=== PATIENT | male | born 1970 | race Caucasian/White ===

== ENCOUNTER 2018-07-13 11:14 | Inpatient (IN) | payer OTHER ==
--- NOTE | 2018-07-13 12:30 | PDOC ---
History of Present Illness - General Chief Complaint: Revisit, Lab Variance Stated Complaint: SENT BY PCP Time Seen by Provider: 07/13/18 11:48 History Source: Patient, Family (Daughter present at bedside) Exam Limitations: No Limitations - History of Present Illness Initial Comments: HPI: 47 y/o male presenting to [facility] ER at urging of Dr. Hazel Meza complaining of chills, nausea, and decreased appetite. Symptoms started on Thursday (11 July 2018). Pts daughter at bedside and reports the pt has been foggy headed. No history of similar symptoms. PCP: Dr. Carina Gilmore Social Hx: - Self employed with Medical Hx: - CKD - Insulin dependent diabetes - HTN - Anemia -S/p ablation for unknown tachycardia Past History - Past Medical History Allergies/Adverse Reactions: Allergies Allergy/AdvReac Type Severity Reaction Status Date / Time No Known Allergies Allergy Verified 07/13/18 11:41 COPD: No Diabetes: Yes (on insulin) HTN: Yes - Suicide/Smoking/Psychosocial Hx Smoking History: Never smoked Hx Alcohol Use: No Drug/Substance Use Hx: No Review of Systems - Review of Systems Able to Perform ROS?: Yes Comments:: In addition to that documented in the HPI above, the additional ROS was obtained : Constitutional: Endorses chills. Denies fevers. Head: Denies vision changes ENMT: Denies sore throat CV: Denies chest pain Resp: Denies SOB GI: Denies vomiting or diarrhea : Denies painful urination MSK: Denies recent trauma Skin: Denies new rashes Neuro: Denies new numbness or tingling or weakness Endocrine: Denies polyuria Heme: Denies bleeding or bruising *Physical Exam - Vital Signs Last Vital Signs Temp Pulse Resp BP Pulse Ox 98 F 81 20 138/70 99 07/13/18 11:41 07/13/18 11:41 07/13/18 11:41 07/13/18 11:41 07/13/18 11:41 - Physical Exam Comments: Constitutional: Well-developed, well-nourished male in no acute distress or obvious discomfort. Found semi-fowlers on hospital bed. Alert and oriented x4. Answered all questions appropriately and completely. Speech was non-labored, non -pressured. Head: Normocephalic. No obvious external signs of trauma. Eyes: Sclerae white. Ears: Hearing grossly intact. Nose: No nasal discharge. Neck: Supple, trachea is midline. Cardiovascular / Chest: Regular rate and regular rhythm. No murmur, rubs, clicks, or gallops. Peripheral pulses: radial pulses full. Respiratory: Breathing unlabored. Equal chest rise and fall. Clear to auscultation bilaterally. No stridor, no wheezing, no rhonchi. Gastrointestinal: abdomen is soft, non-tender, non-distended. Neuro: Alert and oriented. Moving all four extremities spontaneously. Gait normal. Skin/Ext: Warm, dry, and intact. 1+ pretibial edema to bilateral lower extremities. : No R or L CVA tenderness. Psych: Affect: appropriate. Mood: normal. Moderate Sedation - Procedure Monitoring Vital Signs: Procedure Monitoring Vital Signs Temperature 98 F 07/13/18 11:41 Pulse Rate 81 07/13/18 11:41 Respiratory Rate 20 07/13/18 11:41 Blood Pressure 138/70 07/13/18 11:41 O2 Sat by Pulse Oximetry (%) 99 07/13/18 11:41 ED Treatment Course - LABORATORY CBC & Chemistry Diagram: 07/13/18 12:38 07/13/18 12:38 - RADIOLOGY Radiology Studies Ordered: Category Date Time Status CHEST PA & LAT [RAD] Stat Radiology 07/13/18 12:29 Ordered *DC/Admit/Observation/Transfer Diagnosis at time of Disposition: Elevated serum creatinine, Uremia, CKD (chronic kidney disease) stage 5, GFR less than 15 ml/min Anemia Qualifiers: Anemia type: unspecified type Qualified Code(s): D64.9 - Anemia, unspecified - Discharge Dispostion Condition at time of disposition: Fair Decision to Admit order: Yes - Referrals Referrals: Hazel Meza MD [Primary Care Provider] - - Patient Instructions - Post Discharge Activity
[2018-07-13 13:05] LABS: URINE APPEARANCE SLCLOUDY; URINE BILIRUBIN NEGATIVE (<2.0 mg/dL); URINE COLOR LTYELLOW; URINE GLUCOSE (UA) 1+ (NEGATIVE); URINE KETONE NEGATIVE (NEGATIVE); URINE LEUK ESTERASE NEGATIVE (NEGATIVE); URINE NITRITE NEGATIVE (NEGATIVE); URINE PROTEIN 3+ (NEGATIVE); URINE UROBILINOGEN NEGATIVE mg/dL (0.2-1.0)
[2018-07-13 13:08] LABS: URINE BACTERIA RARE /hpf (NONE SEEN); URINE HYALINE CAST 1 /lpf
[2018-07-13 13:11] LABS: BASO % 1.5 % (0-2.0); EOS % 1.9 % (0-4.5); HEMATOCRIT 24.4 % (35.4-49); HEMOGLOBIN 8.6 GM/dL (11.7-16.9); LYMPH % 20.7 % (8-40); MCH 30.8 pg (25.7-33.7); MCHC 35.4 g/dl (32.0-35.9); MEAN CELL VOLUME 86.9 fl (80-96); MONO % 9.2 % (3.8-10.2); NEUT % 66.7 % (42.8-82.8); PLATELET COUNT 335 K/MM3 (134-434); RDW 12.2 % (11.9-15.9); WHITE BLOOD COUNT 6.4 K/mm3 (4.0-10.0)
[2018-07-13 13:20] LABS: URINE PROTEIN 247 mg/dl (5.0-11.9)
--- NOTE | 2018-07-13 13:26 | PDOC ---
Attending Attestation - Resident Resident Name: Andrae Cisneros - ED Attending Attestation I have performed the following: I have examined & evaluated the patient, The case was reviewed & discussed with the resident, I agree w/resident's findings & plan, Exceptions are as noted - HPI HPI: 07/13/18 13:19 The patient is a 47 year old male, with a significant past medical history of CKD, IDDM, HTN, anemia, who was advised by their PCP to come to the emergency department for evaluation of 3 days of nausea, chills, and decreased appetite. Patient denies any other complaints. The patient denies chest pain, shortness of breath, headache and dizziness. Denies fever, chills, nausea, vomit, diarrhea and constipation. Denies dysuria, frequency, urgency and hematuria. 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 Hazel Plasencia. Concern for uremia. Vitals unremarkable. Exam unremarkable. Plan to check labs, XR, anticipate admission <Lucy Gama - Last Filed: 07/13/18 21:19> Attestations - Attestations 07/13/18 14:32 Documentation prepared by Susan Avila, acting as medical pathologist for Lucy Gama MD. <Susan Avila - Last Filed: 07/13/18 14:31>
[2018-07-13 14:17] LABS: ALBUMIN 2.8 g/dl (3.4-5.0); ALK PHOS 141 U/L (45-117); ANION GAP 13 MMOL/L (8-16); BILIRUBIN,TOTAL 0.3 mg/dL (0.2-1); BLOOD UREA NITROGEN 60 mg/dL (7-18); CALCIUM 7.4 mg/dL (8.5-10.1); CHLORIDE 96 mmol/L (98-107); CO2 19 mmol/L (21-32); GLUCOSE,RANDOM 93 mg/dL (74-106); MAGNESIUM 2.1 mg/dL (1.8-2.4); PHOSPHOROUS 6.7 mg/dL (2.5-4.9); POTASSIUM 3.3 mmol/L (3.5-5.1); SGOT/AST 27 U/L (15-37); SGPT/ALT 62 U/L (13-61); SODIUM 128 mmol/L (136-145)
[2018-07-13 14:30] LABS: CREATININE 8.3 mg/dL (0.55-1.3)
[2018-07-13] MEDS ORDERED: SODIUM CHLORIDE 0.9% 500 ML INFUS.BAG IV ONE (15:28)
[2018-07-13] MEDS ORDERED: POTASSIUM CHLORIDE TABS 20 MEQ TABLET.ER (FP) PO ONE ×2 (15:34→16:00)
--- NOTE | 2018-07-13 16:15 | CONSULT ---
<Jorge Morejon P - Last Filed: 07/13/18 16:29> - Consultation REQUESTING PROVIDER: Maik Valdes - Vascular Surgery CONSULT REQUEST: We have been asked to surgically evaluate this patient for CKD PCP: Dr. Hazel Wade HPI: Called to evaluate 47yo male with PMHx as noted below. Sent to [facility] ED from his PCPs office for further evaluation secondary to nausea x3 days, chills and decreased appetite. Denies fever, chills, diarrhea. Denies CP, palpitations , SOB, HANLEY, IZAGUIRRE and dizziness. Admits to a decrease in his urinary output. Denies dysuria or hematuria. PMHx: MMP, CKD, IDDM, HTN, Anemia PSHx: Cardiac Ablation (rhythm unk) Allergies: NKDA Meds: Insulin ROS: CONSTITUTIONAL: Absent: malaise, weight change CARDIOVASCULAR: Absent: syncope RESPIRATORY: Absent: cough, wheezing, stridor, hemoptysis GASTROINTESTINAL:Absent: abdominal pain, abdominal distension, melena, hematochezia GENITOURINARY: Absent: frequency, urgency, hesitancy, genital pain MUSCULOSKELETAL: Absent: myalgia, arthralgia, joint swelling, back pain, neck pain SKIN: Absent: rash, itching, pallor HEMATOLOGIC/IMMUNOLOGIC: Absent: easy bleeding, easy bruising, lymphadenopathy NEUROLOGIC: Absent: paresthesias, dizziness, unsteady gait, seizure, bladder or bowel incontinence PSYCHIATRIC: Absent: anxiety, depression, suicidal or homicidal ideation, hallucinations. PE: Constitutional: Well-developed, well-nourished. NAD Head: NC. AT. Eyes: PERRL, sclera anicteric, conjunctiva clear. Neck: Normal ROM, supple without lymphadenopathy, JVD, or masses. Cor: RRR PULM: CTA bilat GI: Soft, NT, ND, normoactive bs throughout, no guarding, no rebound, no masses. UE: 2+ pulses, warm, well-perfused. No cyanosis. Cap refill <2 seconds. No peripheral edema. LE: 2+ pulses, warm, well-perfused. No calf tenderness. No peripheral edema. Neuro: GMNVI : Negative CVAT bilat. Psych: Cooperative. Good eye contact. Appropriate mood and affect. Last Vital Signs Temp Pulse Resp BP Pulse Ox 98 F 81 20 138/70 99 07/13/18 11:41 07/13/18 11:41 07/13/18 11:41 07/13/18 11:41 07/13/18 11:41 CBC, BMP 07/13/18 12:38 07/13/18 12:38 Hepatic Panel Total Bilirubin 0.3 mg/dL (0.2-1) 07/13/18 12:38 AST 27 U/L (15-37) 07/13/18 12:38 ALT 62 U/L (13-61) H 07/13/18 12:38 Alkaline Phosphatase 141 U/L (45-117) H 07/13/18 12:38 Albumin 2.8 g/dl (3.4-5.0) L 07/13/18 12:38 Urine Test Results Urine Color Ltyellow 07/13/18 12:38 Urine Appearance Slcloudy 07/13/18 12:38 Urine pH 5.0 (5.0-8.0) 07/13/18 12:38 Ur Specific [place] 1.007 (1.010-1.035) L 07/13/18 12:38 Urine Protein 247 mg/dl (5.0-11.9) H 07/13/18 12:38 Urine Glucose (UA) 1+ (NEGATIVE) H 07/13/18 12:38 Urine Ketones Negative (NEGATIVE) 07/13/18 12:38 Urine Blood Negative (NEGATIVE) 07/13/18 12:38 Urine Nitrite Negative (NEGATIVE) 07/13/18 12:38 Urine Bilirubin Negative (<2.0 mg/dL) 07/13/18 12:38 Ur Leukocyte Esterase Negative (NEGATIVE) 07/13/18 12:38 Urine Bacteria Rare /hpf (NONE SEEN) 07/13/18 12:38 Problem List - Problems (1) CKD (chronic kidney disease) stage 5, GFR less than 15 ml/min Assessment/Plan: 47 yo male with CKD Stage 5 now in need of terminal computer operator HD Patient is scheduled to have Permacatheter placed 07/14/[address] Maik Valdes NPO after midnight ordered Type and screen ordered Coags ordered Hibiclens ordered Consent to be obtained by Surgeon Medical optimization/clearance Code(s): N18.5 - CHRONIC KIDNEY DISEASE, STAGE 5 (2) Anemia Code(s): D64.9 - ANEMIA, UNSPECIFIED Qualifiers: Anemia type: unspecified type Qualified Code(s): D64.9 - Anemia, unspecified Visit type - Case Type Case Type: ED Admission - Emergency Emergency Visit: Yes Care time: The patient presented to the Emergency Department on the above date and was hospitalized for further evaluation of their emergent condition. - New patient This patient is new to me today: Yes Date on this admission: 07/13/18 <Maik Valdes - Last Filed: 07/14/18 10:27> - Consultation REQUESTING PROVIDER: CONSULT REQUEST: We have been asked to surgically evaluate this patient for ( specify). PCP:Gerson Hanley MD HISTORY OF PRESENT ILLNESS: PMHx: PSHx: Home Medications Medication Instructions Recorded Amlodipine Besylate [Norvasc -] 10 mg PO DAILY 07/13/18 Atorvastatin Ca [Lipitor] 20 mg DAILY 07/13/18 Ergocalciferol (Vitamin D2) 50,000 unit PO WEEKLY 07/13/18 [Vitamin D2] Furosemide [Lasix -] 80 mg PO DAILY 07/13/18 Insulin Detemir [Levemir Flextouch] 10 unit SQ HS 07/13/18 Lisinopril 10 mg DAILY 07/13/18 Allergies Allergy/AdvReac Type Severity Reaction Status Date / Time No Known Allergies Allergy Verified 07/13/18 11:41 REVIEW OF SYSTEMS: CONSTITUTIONAL: Absent: fever, chills, diaphoresis, generalized weakness, malaise, loss of appetite, weight change CARDIOVASCULAR: Absent: chest pain, syncope, palpitations, irregular heart rate, lightheadedness , peripheral edema RESPIRATORY: Absent: cough, shortness of breath, dyspnea with exertion, wheezing, stridor, hemoptysis GASTROINTESTINAL: Absent: abdominal pain, abdominal distension, nausea, vomiting, diarrhea, constipation, melena, hematochezia GENITOURINARY: Absent: dysuria, frequency, urgency, hesitancy, hematuria, flank pain, genital pain MUSCULOSKELETAL: Absent: myalgia, arthralgia, joint swelling, back pain, neck pain SKIN: Absent: rash, itching, pallor HEMATOLOGIC/IMMUNOLOGIC: Absent: easy bleeding, easy bruising, lymphadenopathy NEUROLOGIC: Absent: headache, focal weakness, paresthesias, dizziness, unsteady gait, seizure, mental status changes, bladder or bowel incontinence PSYCHIATRIC: Absent: anxiety, depression, suicidal or homicidal ideation, hallucinations. PHYSICAL EXAM: GENERAL: Awake, alert, and fully oriented, in no acute distress. HEAD: Normal with no signs of trauma. EYES: PERRL, sclera anicteric, conjunctiva clear. NECK: Normal ROM, supple without lymphadenopathy, JVD, or masses. LUNGS: Clear to auscultation bilat anteriorly. No wheezes, and no crackles. No accessory muscle use. HEART: Regular rate and rhythm. No murmurs ABDOMEN: Soft, nontender, not distended, normoactive bowel sounds, no guarding, no rebound, no masses. No organomegaly. MUSCULOSKELETAL: Normal ROM at all joints. No bony deformities or tenderness. No CVA tenderness. UPPER EXTREMITIES: 2+ pulses, warm, well-perfused. No cyanosis. Cap refill <2 seconds. No peripheral edema. LOWER EXTREMITIES: 2+ pulses, warm, well-perfused. No calf tenderness. No peripheral edema. NEUROLOGICAL: Normal speech, gait not observed. PSYCH: Cooperative. Good eye contact. Appropriate mood and affect. SKIN: Warm, dry, normal turgor, no rashes or lesions noted. Vital Signs Temperature 98.8 F 07/14/18 09:40 Pulse Rate 90 07/14/18 09:40 Respiratory Rate 18 07/14/18 09:40 Blood Pressure 141/72 07/14/18 09:40 O2 Sat by Pulse Oximetry (%) 95 07/13/18 21:00 Lab Results WBC 6.4 K/mm3 (4.0-10.0) 07/14/18 06:00 RBC 2.70 M/mm3 (4.00-5.60) L 07/14/18 06:00 Hgb 8.3 GM/dL (11.7-16.9) L 07/14/18 06:00 Hct 23.4 % (35.4-49) L 07/14/18 06:00 MCV 86.7 fl (80-96) 07/14/18 06:00 MCHC 35.6 g/dl (32.0-35.9) 07/14/18 06:00 RDW 11.9 % (11.9-15.9) 07/14/18 06:00 Plt Count 308 K/MM3 (134-434) 07/14/18 06:00 Sodium 130 mmol/L (136-145) L 07/14/18 06:00 Potassium 3.2 mmol/L (3.5-5.1) L 07/14/18 06:00 Chloride 98 mmol/L (98-107) 07/14/18 06:00 Carbon Dioxide 20 mmol/L (21-32) L 07/14/18 06:00 Anion Gap 12 MMOL/L (8-16) 07/14/18 06:00 BUN 58 mg/dL (7-18) H 07/14/18 06:00 Creatinine 8.5 mg/dL (0.55-1.3) H* 07/14/18 06:00 Random Glucose 90 mg/dL (74-106) 07/14/18 06:00 Calcium 7.3 mg/dL (8.5-10.1) L 07/14/18 06:00 Blood Type O POSITIVE 07/13/18 21:40 Antibody Screen Negative 07/13/18 16:32 INR 1.08 (0.83-1.09) 07/13/18 16:32 History reviewed, patient examined. For placement of Permacath Thursday for emergency dialysis. WIll evaluate for PD catheter placement.
[2018-07-13] MEDS: INSULIN SLIDING SCALE (NOVOLOG) 1 VIAL SQ SCH ×2 (16:39→21:26)
[2018-07-13] MEDS ORDERED: FUROSEMIDE 40 MG/4 ML INJECTABLE VIAL IVPB ONE (17:05)
[2018-07-13 17:15] LABS: INR 1.08 (0.83-1.09); PROTHROMBIN TIME (PATIENT) 12.7 SEC (9.7-13.0)
[2018-07-13] MEDS ORDERED: MAGNESIUM SULF 50% (8.12 MEQ/2 ML-1 GM VIAL) IVPB ONE (17:17)
--- NOTE | 2018-07-13 17:25 | HP ---
CHIEF COMPLAINT: N/V/chills x 3 days PCP: Dr. Thompson HISTORY OF PRESENT ILLNESS: 47 y/o M with PMH CKD 2/2 DM, HTN, HLD, IDDM, s/p ablation for tachycardia, who was sent to the ED by PCP (Dr. Thompson) for three-day hx of N/V chills, and decreased appetite. As per pt, in 2018, he was told by Dr. Bucio ([facility]), that his renal fnc was worsening. For this reason, he underwent a renal biopsy in 2017. Was found to have diabetic nephropathy. Discussions had begun concerning dialysis or transplant. 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 In the last 2-3 months, he has started following with another nephro, Dr. Thompson, with continued discussion concerning his worsening renal fnc. His baseline Cr is 6. Based on his recent sx of multiple episodes of NBNB emesis, chills, and general malaise he was recommended to come to the ED for admission. During this time, endorses facial and lower extremity edema. Denies IZAGUIRRE, fever, chills, SOB, chest pain or pressure, or changes in bowel function. Is oliguric but not anuric. ER course was notable for: (1) Kdur [id number] (2) NS 500 cc (3) Recent Travel: denies PAST MEDICAL HISTORY: as above PAST SURGICAL HISTORY: eye sx for "retina problem" Social History: owns a [employer] business Smokin yrsx 1 ppd. quit 10 yrs ago Alcohol: stopped 1 yr ago, used to drink socially Drugs: denies Family History: multiple siblings with DM, HTN, renal problems. brother with renal transplant who follows with Dr. Thompson Allergies No Known Allergies Allergy (Verified 07/13/18 11:41) HOME MEDICATIONS: Home Medications Medication Instructions Recorded Amlodipine Besylate [Norvasc -] 10 mg PO DAILY 07/13/18 Atorvastatin Ca [Lipitor] 20 mg DAILY 07/13/18 Ergocalciferol (Vitamin D2) 50,000 unit PO WEEKLY 07/13/18 [Vitamin D2] Furosemide [Lasix -] 80 mg PO DAILY 07/13/18 Insulin Detemir [Levemir Flextouch] 10 unit SQ HS 07/13/18 Lisinopril 10 mg DAILY 07/13/18 meds have been verified with [facility] had recent dosage changes which are reflected REVIEW OF SYSTEMS CONSTITUTIONAL: +malaise, loss of appetite Absent: fever, chills, diaphoresis, generalized weakness, weight change HEENT: Absent: rhinorrhea, nasal congestion, throat pain, throat swelling, difficulty swallowing, mouth swelling, ear pain, eye pain, visual changes CARDIOVASCULAR: Absent: chest pain, syncope, palpitations, irregular heart rate, lightheadedness , peripheral edema RESPIRATORY: Absent: cough, shortness of breath, dyspnea with exertion, orthopnea, wheezing, stridor, hemoptysis GASTROINTESTINAL: +nausea, vomiting Absent: abdominal pain, abdominal distension, diarrhea, constipation, melena, hematochezia GENITOURINARY: Absent: dysuria, frequency, urgency, hesitancy, hematuria, flank pain, genital pain MUSCULOSKELETAL: Absent: myalgia, arthralgia, joint swelling, back pain, neck pain SKIN: Absent: rash, itching, pallor HEMATOLOGIC/IMMUNOLOGIC: Absent: easy bleeding, easy bruising, lymphadenopathy, frequent infections ENDOCRINE: Absent: unexplained weight gain, unexplained weight loss, heat intolerance, cold intolerance NEUROLOGIC: Absent: headache, focal weakness or paresthesias, dizziness, unsteady gait, seizure, mental status changes, bladder or bowel incontinence PSYCHIATRIC: Absent: anxiety, depression, suicidal or homicidal ideation, hallucinations. PHYSICAL EXAMINATION Vital Signs - 24 hr 07/13/18 07/13/18 11:41 16:47 Temperature 98 F Pulse Rate 81 Pulse Rate [ 86 Apical] Respiratory 20 16 Rate Blood Pressure 138/70 Blood Pressure 136/70 [Right Arm] O2 Sat by Pulse 99 99 Oximetry (%) GENERAL: Pleasant. Awake, alert, and fully oriented, in no acute distress. HEAD: Normal with no signs of trauma. +facial edema EYES: Pupils equal, round and reactive to light, extraocular movements intact, sclera anicteric, conjunctiva clear. No lid lag. EARS, NOSE, THROAT: Ears normal, nares patent, oropharynx clear without exudates. Moist mucous membranes. NECK: Normal range of motion, supple without lymphadenopathy LUNGS: Breath sounds equal, clear to auscultation bilaterally. No wheezes, and no crackles. No accessory muscle use. HEART: Regular rate and rhythm, normal S1 and S2 without murmur, rub or gallop. ABDOMEN: Soft, obese, nontender, not distended, normoactive bowel sounds, no guarding LOWER EXTREMITIES: 2+ pt pulses, warm, well-perfused. No calf tenderness. 2+ pitting edema b/l NEUROLOGICAL: Cranial nerves II-XII intact. 5/5 motor strength UE, LE. sensation intact PSYCHIATRIC: Cooperative. Good eye contact. SKIN: Warm, dry Laboratory Results - last 24 hr 07/13/18 07/13/18 07/13/18 12:38 12:38 12:38 WBC 6.4 RBC 2.80 L Hgb 8.6 L Hct 24.4 L MCV 86.9 MCH 30.8 MCHC 35.4 RDW 12.2 Plt Count 335 MPV 8.0 Absolute Neuts (auto) 4.3 Neutrophils % 66.7 Lymphocytes % 20.7 Monocytes % 9.2 Eosinophils % 1.9 Basophils % 1.5 Nucleated RBC % 0 PT with INR INR Sodium 128 L Potassium 3.3 L Chloride 96 L Carbon Dioxide 19 L Anion Gap 13 BUN 60 H Creatinine 8.3 H* Creat Clearance w eGFR 7.00 POC Glucometer Random Glucose 93 Calcium 7.4 L Phosphorus 6.7 H Magnesium 2.1 Total Bilirubin 0.3 AST 27 ALT 62 H Alkaline Phosphatase 141 H Troponin I < 0.02 B-Natriuretic Peptide Total Protein 6.0 L Albumin 2.8 L Urine Color Ltyellow Urine Appearance Slcloudy Urine pH 5.0 Ur Specific [place] 1.007 L Urine Protein 3+ H Urine Glucose (UA) 1+ H Urine Ketones Negative Urine Blood Negative Urine Nitrite Negative Urine Bilirubin Negative Urine Urobilinogen Negative Ur Leukocyte Esterase Negative Urine WBC (Auto) 2 Urine RBC (Auto) 1 Urine Bacteria Rare Hyaline Casts 1 Ur Random Sodium Urine Creatinine 07/13/18 07/13/18 07/13/18 12:38 12:38 12:38 B-Natriuretic Peptide 4275.2 H Ur Specific [place] 1.007 L Urine Protein 3+ H 247 H Urine Glucose (UA) 1+ H Hyaline Casts 1 Ur Random Sodium < 18 L Urine Creatinine 78.0 EKG: NSR, vent rate 80bpm, qtc 380ms. without acute ST-T wave changes. CXR: with congestion, official read pending ASSESSMENT/PLAN: 47 y/o M with PMH CKD 2/2 DM, HTN, HLD, IDDM, s/p ablation for tachycardia, who was sent to the ED by PCP (Dr. Thompson) for three-day hx of N/V chills, and decreased appetite. #Uremia 2/2 CKD -will likely need urgent dialysis, however not emergent -for shiley placement by Dr. Valdes tomorrow -after mult sessions of HD to likely receive PD access -as per nephro, will give Mg -hold lisinopril -will diurese with lasix ivp 80mg x 1 and reassess tomorrow -f/u hep serologies as needed for dialysis units -NPO after MN, coags #IDDM -will hold home levemir for now -BGM, ISS ACHS #HTN -will hold lisinopril -c/w amlodipine #HLD -c/w lipitor #F/E/N no IVF at this time, avoid overload continue to follow lytes renal/low Na/DM diet for now. NPO after MN #PPX DVT: Hep SQ #Dispo admit to med-surg for catheter placement tomorrow (07/14) Visit type - Emergency Visit Emergency Visit: Yes ED Registration Date: 07/13/18 Care time: The patient presented to the Emergency Department on the above date and was hospitalized for further evaluation of their emergent condition. - New Patient This patient is new to me today: Yes Date on this admission: 07/13/18 - Critical Care Critical Care patient: No
--- NOTE | 2018-07-13 20:15 | PN ---
Teaching Attending Note Name of Resident: Nanda Cortes ATTENDING PHYSICIAN STATEMENT I saw and evaluated the patient. I reviewed the resident's note and discussed the case with the resident. I agree with the resident's findings and plan as documented. SUBJECTIVE: Complains of Nausea, vomiting, decreased appetite for 2-3 days. No hematemesis/fevers/cough/sputum/dysuria/hematuria. Admits to some loose stool, no melena/hematochezia/abdominal pain. OBJECTIVE: Afebrile, Hemodynamically Stable. Last Vital Signs Temp Pulse Resp BP Pulse Ox 98.2 F 92 H 16 147/78 95 07/13/18 17:27 07/13/18 17:27 07/13/18 17:27 07/13/18 17:27 07/13/18 17:27 HEENT - Atramatic, Normocephalic Heart - S1, S2, SM Lungs - clear to auscultation Abdomen - soft, non-tender. Bowel Sounds normal. Extremities - LE edema ++. No calf tenderness. Laboratory Results - last 24 hr 07/13/18 07/13/18 07/13/18 12:38 12:38 12:38 WBC 6.4 RBC 2.80 L Hgb 8.6 L Hct 24.4 L MCV 86.9 MCH 30.8 MCHC 35.4 RDW 12.2 Plt Count 335 MPV 8.0 Absolute Neuts (auto) 4.3 Neutrophils % 66.7 Lymphocytes % 20.7 Monocytes % 9.2 Eosinophils % 1.9 Basophils % 1.5 Nucleated RBC % 0 PT with INR INR Sodium 128 L Potassium 3.3 L Chloride 96 L Carbon Dioxide 19 L Anion Gap 13 BUN 60 H Creatinine 8.3 H* Creat Clearance w eGFR 7.00 POC Glucometer Random Glucose 93 Calcium 7.4 L Phosphorus 6.7 H Magnesium 2.1 Total Bilirubin 0.3 AST 27 ALT 62 H Alkaline Phosphatase 141 H Troponin I < 0.02 B-Natriuretic Peptide Total Protein 6.0 L Albumin 2.8 L Urine Color Ltyellow Urine Appearance Slcloudy Urine pH 5.0 Ur Specific [place] 1.007 L Urine Protein 3+ H Urine Glucose (UA) 1+ H Urine Ketones Negative Urine Blood Negative Urine Nitrite Negative Urine Bilirubin Negative Urine Urobilinogen Negative Ur Leukocyte Esterase Negative Urine WBC (Auto) 2 Urine RBC (Auto) 1 Urine Bacteria Rare Hyaline Casts 1 Ur Random Sodium Urine Creatinine 07/13/18 07/13/18 07/13/18 12:38 12:38 16:32 WBC RBC Hgb Hct MCV MCH MCHC RDW Plt Count MPV Absolute Neuts (auto) Neutrophils % Lymphocytes % Monocytes % Eosinophils % Basophils % Nucleated RBC % PT with INR 12.70 INR 1.08 Sodium Potassium Chloride Carbon Dioxide Anion Gap BUN Creatinine Creat Clearance w eGFR POC Glucometer Random Glucose Calcium Phosphorus Magnesium Total Bilirubin AST ALT Alkaline Phosphatase Troponin I B-Natriuretic Peptide 4275.2 H Total Protein Albumin Urine Color Urine Appearance Urine pH Ur Specific [place] Urine Protein 247 H Urine Glucose (UA) Urine Ketones Urine Blood Urine Nitrite Urine Bilirubin Urine Urobilinogen Ur Leukocyte Esterase Urine WBC (Auto) Urine RBC (Auto) Urine Bacteria Hyaline Casts Ur Random Sodium < 18 L Urine Creatinine 78.0 07/13/18 16:34 WBC RBC Hgb Hct MCV MCH MCHC RDW Plt Count MPV Absolute Neuts (auto) Neutrophils % Lymphocytes % Monocytes % Eosinophils % Basophils % Nucleated RBC % PT with INR INR Sodium Potassium Chloride Carbon Dioxide Anion Gap BUN Creatinine Creat Clearance w eGFR POC Glucometer 72 Random Glucose Calcium Phosphorus Magnesium Total Bilirubin AST ALT Alkaline Phosphatase Troponin I B-Natriuretic Peptide Total Protein Albumin Urine Color Urine Appearance Urine pH Ur Specific [place] Urine Protein Urine Glucose (UA) Urine Ketones Urine Blood Urine Nitrite Urine Bilirubin Urine Urobilinogen Ur Leukocyte Esterase Urine WBC (Auto) Urine RBC (Auto) Urine Bacteria Hyaline Casts Ur Random Sodium Urine Creatinine Current Medications Generic Name Dose Route Start Last Admin Trade Name Freq PRN Reason Stop Dose Admin Atorvastatin Calcium 20 mg 07/13/18 22:00 Lipitor - PO [facility] Insulin Aspart 1 vial 07/13/18 16:30 07/13/18 16:39 Novolog Vial Sliding Scale - SQ Not Given [facility] Protocol Home Medications Medication Instructions Recorded Amlodipine Besylate [Norvasc -] 10 mg PO DAILY 07/13/18 Atorvastatin Ca [Lipitor] 20 mg DAILY 07/13/18 Ergocalciferol (Vitamin D2) 50,000 unit PO WEEKLY 07/13/18 [Vitamin D2] Furosemide [Lasix -] 80 mg PO DAILY 07/13/18 Insulin Detemir [Levemir Flextouch] 10 unit SQ HS 07/13/18 Lisinopril 10 mg DAILY 07/13/18 ASSESSMENT AND PLAN: 47 year old male with history of CKD 4/5, HTN, HLD, DM 2, history of Tachyarrythmia s/p Ablation, sent to ED by [employer] Dr. Thompson for increasing chills/nausea/vomiting/decreased appetite/increasing LE edema. Vomitus non-bloody, non-bilious. No fever/chills. Reports some loose stool. EKG: NSR, rate 80, no acute St/T wave changes CXR: No acute cardiopulmonary findings. 1. Symptomatic Uremia secondary to progressive CKD, will likely need HD Decreasing urine output, not acidotic, electrolytes wnl. No need for emergent dialysis as per Nephrology - will attempt diuresis with IV Lasix. Vascular Surgery Dr. Valladares consulted for HD catheter placement. Nephrology to evaluate and make further recommendations. 2. DM 2 - maintain on sliding scale. 3. HTN - Lisinopril held. Continue Amlodipine. 4. HLD - Continue Lipitor. DVT Px - Heparin SQ
[2018-07-13] MEDS ORDERED: INSULIN (NOVOLOG) ASPART 100 UNITS/ML 10ML VIAL ONE (21:21)
[2018-07-13] MEDS: HEPARIN NA (PORCINE) 5,000 UNITS/ML 1ML VIAL SQ SCH (21:26)
[2018-07-13] MEDS ORDERED: ATORVASTATIN CA 20 MG TABLET (FP) PO SCH (22:00)
[2018-07-13] MEDS ORDERED: CHLORHEXIDINE GLUCONATE 4% CLEANSER FOR DECOLONIZATION TP SCH (22:00)
[2018-07-14] MEDS: INSULIN SLIDING SCALE (NOVOLOG) 1 VIAL SQ SCH ×4 (06:33→22:00)
[2018-07-14 07:18] LABS: EOS % 2.4 % (0-4.5); HEMATOCRIT 23.4 % (35.4-49); HEMOGLOBIN 8.3 GM/dL (11.7-16.9); LYMPH % 15.4 % (8-40); MCH 30.9 pg (25.7-33.7); MCHC 35.6 g/dl (32.0-35.9); MEAN CELL VOLUME 86.7 fl (80-96); MEAN PLT VOLUME 8.1 fl (7.5-11.1); MONO % 10.6 % (3.8-10.2); NEUT % 70.6 % (42.8-82.8); PLATELET COUNT 308 K/MM3 (134-434); RDW 11.9 % (11.9-15.9); WHITE BLOOD COUNT 6.4 K/mm3 (4.0-10.0)
[2018-07-14 07:32] LABS: ANION GAP 12 MMOL/L (8-16); BLOOD UREA NITROGEN 58 mg/dL (7-18); CALCIUM 7.3 mg/dL (8.5-10.1); CHLORIDE 98 mmol/L (98-107); CO2 20 mmol/L (21-32); GLUCOSE,RANDOM 90 mg/dL (74-106); MAGNESIUM 1.9 mg/dL (1.8-2.4); PHOSPHOROUS 7.1 mg/dL (2.5-4.9); POTASSIUM 3.2 mmol/L (3.5-5.1); SODIUM 130 mmol/L (136-145)
[2018-07-14 07:42] LABS: CREATININE 8.5 mg/dL (0.55-1.3)
[2018-07-14] MEDS ORDERED: INSULIN (NOVOLOG) ASPART 100 UNITS/ML 10ML VIAL ONE (07:43)
[2018-07-14] MEDS ORDERED: PT OWN MED DRAWER 7, Y5N ONE ×2 (07:44→07:50)
[2018-07-14] MEDS ORDERED: POTASSIUM CHLORIDE TABS 20 MEQ TABLET.ER (FP) PO ONE (08:15)
[2018-07-14] MEDS: HEPARIN NA (PORCINE) 5,000 UNITS/ML 1ML VIAL SQ SCH ×2 (09:40→22:00)
[2018-07-14] MEDS ORDERED: amLODIPine BESYLATE 10 MG TABLET (FP) PO SCH (10:00)
[2018-07-14] MEDS ORDERED: LIDOCAINE HCL 1%, 10 MG/ML (20ML VIAL) ONE ×2 (10:29→10:37)
[2018-07-14] MEDS ORDERED: HEPARIN NA (PORCINE) 5,000 UNITS/ML 1ML VIAL ONE (10:37)
[2018-07-14] MEDS ORDERED: MIDAZOLAM HCL 2 MG/2 ML SINGLE DOSE VIAL ONE (10:55)
[2018-07-14] MEDS ORDERED: PROPOFOL 20 ML ONE (10:55)
[2018-07-14] MEDS ORDERED: SODIUM CHLORIDE 0.9% P/F 10 ML VIAL IJ ONE (10:56)
[2018-07-14] MEDS ORDERED: LIDOCAINE HCL/PF 2% SDV 5ML VIAL ONE (10:56)
[2018-07-14] MEDS ORDERED: ceFAZolin SODIUM 1 GM VIAL ONE (10:56)
--- NOTE | 2018-07-14 11:10 | EKG ---
Test Reason : Blood Pressure : / mmHG Vent. Rate : 080 BPM Atrial Rate : 080 BPM P-R Int : 168 ms QRS Dur : 102 ms QT Int : 330 ms P-R-T Axes : 042 019 062 degrees QTc Int : 380 ms NORMAL SINUS RHYTHM NONSPECIFIC T WAVE ABNORMALITY ABNORMAL ECG NO PREVIOUS ECGS AVAILABLE Confirmed by JOYCE STEVENSON, YOUNG ([id number]) on 07/14/2018 11:10:23 AM Referred By: Confirmed By:YOUNG COOK MD
[2018-07-14] MEDS ORDERED: SODIUM CHLORIDE 250 ML IV PRN ×3 (11:27→21:51)
[2018-07-14] MEDS ORDERED: EPOETIN ALFA 2,000 UNIT/1 ML VIAL IVPUSH ONE (11:27)
[2018-07-14] MEDS ORDERED: LIDOCAINE HCL 1%, 10 MG/ML (20ML VIAL) INF ONE (11:29)
--- NOTE | 2018-07-14 11:33 | OP ---
Operative Note - Note: Operative Date: 07/14/18 Pre-Operative Diagnosis: ESRD Operation: Placement Permacath Findings: Patent right IJV Implants: 23 cm Permacath Post-Operative Diagnosis: Same as Pre-op Surgeon: Maik Valdes Anesthesiologist/MANAGER ZONE: Marv Hair Anesthesia: Fractional
--- NOTE | 2018-07-14 12:18 | CONSULT ---
Consult - text type - Consultation Consultation Note: Renal Consult for Progressive CKD This is a 47 year old gentleman with hx of CKD stage 5 from suspected diabetic nephropathy, hypertension, hyperlipidemia, DM who presented with N/V, chills and weakness and found to have BUN/Cr of 58/8.5. His last baseline Cr in the office was 6.5. Pt seen in the recovery room s/p permacath placement today. Pt continues to feel some weakness and mild nausea. No CP, SOB, Abd pain noted. Has some leg swelling. No flank pain. No NSAID use noted. No recent contrast exposure. PMhx: as above Allergies: NKDA Family Hx: NC Social Hx: no T/A/D ROS: as per HPI, all other pertinent ros negative Home Medications Medication Instructions Recorded Amlodipine Besylate [Norvasc -] 10 mg PO DAILY 07/13/18 Atorvastatin Ca [Lipitor] 20 mg DAILY 07/13/18 Ergocalciferol (Vitamin D2) 50,000 unit PO WEEKLY 07/13/18 [Vitamin D2] Furosemide [Lasix -] 80 mg PO DAILY 07/13/18 Insulin Detemir [Levemir Flextouch] 10 unit SQ HS 07/13/18 Lisinopril 10 mg DAILY 07/13/18 Vital Signs Temperature 98.6 F 07/14/18 11:37 Pulse Rate 76 07/14/18 11:45 Respiratory Rate 13 07/14/18 11:45 Blood Pressure 127/70 07/14/18 11:45 O2 Sat by Pulse Oximetry (%) 99 07/14/18 11:45 NAD awake and alert neck supple, no JVD RRR, No M/R CTA, no rales soft NT/ND, no rebound or guarding Trace LE edema but no cyanosis or clubbing no focal neurologic defects CBC, BMP 07/14/18 06:00 07/14/18 06:00 Current Medications Amlodipine Besylate (Norvasc -) 10 mg PO DAILY UNA Atorvastatin Calcium (Lipitor -) 20 mg PO HS UNA Epoetin Osiel (Epogen -) 20,000 unit IVPUSH ONCE ONE Stop: 07/14/18 11:52 Heparin Sodium (Porcine) (Heparin -) 5,000 unit SQ BID UNA Sodium Chloride (Normal Saline -) 250 mls @ 3,000 mls/hr IV PRN PRN PRN Reason: Hypotension during Dialysis Stop: 07/15/18 11:27 Insulin Aspart (Novolog Vial Sliding Scale -) 1 vial SQ ACHS [facility]; Protocol 47 year old gentleman with hx of CKD stage 5 from suspected diabetic nephropathy, hypertension, hyperlipidemia, DM who presented with N/V, chills and weakness and found to have BUN/Cr of 58/8.5. #Progressive CKD now ESRD requiring dialysis #Nausea/Vomiting from uremia #Chills #DM #Hypertension #Anemia #Metabolic acidosis Will plan for dialysis today as inpatient with second session planned for permacath placed by vascular surgery No signs of infection (UA w/o LE, LFT's WNL, CXR w/o pathology) Continue Norvasc 10mg Daily will give MARIO with HD today Acidosis should resolve with dialysis Thank you Mohamud Godwin DO
[2018-07-14] MEDS ORDERED: ONDANSETRON 4 MG/2 ML VIAL IVPUSH PRN (12:26)
--- NOTE | 2018-07-14 13:42 | PN ---
Physical Exam: SUBJECTIVE: Patient seen and examined at bedside. All symptoms including LE edema have resolved at time of encounter, no complaints. OBJECTIVE: Vital Signs Period Temp Pulse Resp BP Sys/Luo Pulse Ox Last 24 Hr 98.2 F-98.8 F 76-95 11-22 125-153/70-79 95-99 GENERAL: A&Ox3, NAD HEENT: NC/AT, PERRLA, EOMI, MMM NECK: Trachea midline, full range of motion, supple. LUNGS: CTA b/l HEART: RRR no m/r/g ABDOMEN: +bs, soft, NT, ND EXTREMITIES: 2+ pulses, warm, well-perfused, no edema. NEUROLOGICAL: fur buyer, motor, sensory systems w/o focal deficit PSYCH: Normal mood, normal affect. SKIN: Warm, dry, normal turgor, no rashes or lesions noted Laboratory Results - last 24 hr 07/13/18 07/13/18 07/13/18 12:38 16:32 16:32 WBC RBC Hgb Hct MCV MCH MCHC RDW Plt Count MPV Absolute Neuts (auto) Neutrophils % Lymphocytes % Monocytes % Eosinophils % Basophils % Nucleated RBC % PT with INR 12.70 INR 1.08 Sodium 128 L Potassium 3.3 L Chloride 96 L Carbon Dioxide 19 L Anion Gap 13 BUN 60 H Creatinine 8.3 H* Creat Clearance w eGFR 7.00 POC Glucometer Random Glucose 93 Calcium 7.4 L Phosphorus 6.7 H Magnesium 2.1 Total Bilirubin 0.3 AST 27 ALT 62 H Alkaline Phosphatase 141 H Troponin I < 0.02 Total Protein 6.0 L Albumin 2.8 L Blood Type O POSITIVE Antibody Screen Negative 07/13/18 07/13/18 07/13/18 16:34 21:25 21:40 WBC RBC Hgb Hct MCV MCH MCHC RDW Plt Count MPV Absolute Neuts (auto) Neutrophils % Lymphocytes % Monocytes % Eosinophils % Basophils % Nucleated RBC % PT with INR INR Sodium Potassium Chloride Carbon Dioxide Anion Gap BUN Creatinine Creat Clearance w eGFR POC Glucometer 72 148 Random Glucose Calcium Phosphorus Magnesium Total Bilirubin AST ALT Alkaline Phosphatase Troponin I Total Protein Albumin Blood Type O POSITIVE Antibody Screen 07/14/18 07/14/18 07/14/18 06:00 06:00 06:29 WBC 6.4 RBC 2.70 L Hgb 8.3 L Hct 23.4 L MCV 86.7 MCH 30.9 MCHC 35.6 RDW 11.9 Plt Count 308 MPV 8.1 Absolute Neuts (auto) 4.5 Neutrophils % 70.6 Lymphocytes % 15.4 D Monocytes % 10.6 H Eosinophils % 2.4 Basophils % 1.0 Nucleated RBC % 0 PT with INR INR Sodium 130 L Potassium 3.2 L Chloride 98 Carbon Dioxide 20 L Anion Gap 12 BUN 58 H Creatinine 8.5 H* Creat Clearance w eGFR 6.81 POC Glucometer 96 Random Glucose 90 Calcium 7.3 L Phosphorus 7.1 H Magnesium 1.9 Total Bilirubin AST ALT Alkaline Phosphatase Troponin I Total Protein Albumin Blood Type Antibody Screen Active Medications Generic Name Dose Route Start Last Admin Trade Name Freq PRN Reason Stop Dose Admin Amlodipine Besylate 10 mg 07/15/18 10:00 Norvasc - PO DAILY UNA Atorvastatin Calcium 20 mg 07/14/18 22:00 Lipitor - PO HS UNA Epoetin Osiel 20,000 unit 07/14/18 11:51 Procrit - IVPUSH 07/14/18 11:52 ONCE ONE Fentanyl 25 mcg 07/14/18 12:26 Sublimaze Injection - IVPUSH [id number] PRN PAIN-PACU ORDER X 4 DOSES ONLY Heparin Sodium (Porcine) 5,000 unit 07/14/18 22:00 Heparin - SQ BID [facility] Sodium Chloride 250 mls @ 3,000 mls/hr 07/14/18 11:51 Normal Saline - IV 07/15/18 11:27 PRN PRN Hypotension during Dialysis Sodium Chloride 1,000 mls @ 42 mls/hr 07/14/18 12:30 Normal Saline - IV ASDIR [facility] Insulin Aspart 1 vial 07/14/18 16:30 Novolog Vial Sliding Scale - SQ ACHS [facility] Protocol Ondansetron HCl 4 mg 07/14/18 12:26 Zofran Injection IVPUSH Q6H PRN NAUSEA AND/OR VOMITING ASSESSMENT/PLAN: 47 y/o M w/ PMHx CKD 2/2 DM, HTN, HLD, IDDM, s/p ablation for tachyarrhythmia, who was sent to the ED by PCP (Dr. Thompson) for three-day hx of N/V chills, and decreased appetite. #Uremia 2/2 CKD -shiley catheter for HD placed today by Dr. Valdes -for dialysis today and tomorrow -hold lisinopril -f/u hep serologies as needed for dialysis units #IDDM -will hold home levemir for now -BGM, ISS ACHS #HTN -will hold lisinopril -c/w amlodipine #HLD -c/w lipitor #FEN -no IVF at this time, avoid overload -continue to follow lytes -renal/diabetic diet #PPX -DVT: heparin sq -GI: not indicated #Dispo -cont to follow on med/surg Visit type - Emergency Visit Emergency Visit: No - New Patient This patient is new to me today: Yes Date on this admission: 07/14/18 - Critical Care Critical Care patient: No
[2018-07-14] MEDS ORDERED: EPOETIN ALFA 20,000 UNIT/1 ML VIAL IVPUSH ONE (14:00)
--- NOTE | 2018-07-14 17:42 | PN ---
Teaching Attending Note Name of Resident: Manjinder Castorena ATTENDING PHYSICIAN STATEMENT I saw and evaluated the patient. I reviewed the resident's note and discussed the case with the resident. I agree with the resident's findings and plan as documented. SUBJECTIVE: Feels much better - no further nausea/vomiting. No hematemesis/ fevers/cough/sputum/dysuria/hematuria. No further loose stool. OBJECTIVE: Afebrile, Hemodynamically Stable. Last Vital Signs Temp Pulse Resp BP Pulse Ox 98.6 F 88 18 152/70 96 07/14/18 15:45 07/14/18 15:45 07/14/18 15:45 07/14/18 15:45 07/14/18 15:45 HEENT - Atramatic, Normocephalic Heart - S1, S2, SM Lungs - clear to auscultation Abdomen - soft, non-tender. Bowel Sounds normal. Extremities - LE edema ++. No calf tenderness. Laboratory Results - last 24 hr 07/13/18 07/13/18 07/13/18 16:32 21:25 21:40 WBC RBC Hgb Hct MCV MCH MCHC RDW Plt Count MPV Absolute Neuts (auto) Neutrophils % Lymphocytes % Monocytes % Eosinophils % Basophils % Nucleated RBC % Sodium Potassium Chloride Carbon Dioxide Anion Gap BUN Creatinine Creat Clearance w eGFR POC Glucometer 148 Random Glucose Calcium Phosphorus Magnesium Blood Type O POSITIVE O POSITIVE Antibody Screen Negative 07/14/18 07/14/18 07/14/18 06:00 06:00 06:29 WBC 6.4 RBC 2.70 L Hgb 8.3 L Hct 23.4 L MCV 86.7 MCH 30.9 MCHC 35.6 RDW 11.9 Plt Count 308 MPV 8.1 Absolute Neuts (auto) 4.5 Neutrophils % 70.6 Lymphocytes % 15.4 D Monocytes % 10.6 H Eosinophils % 2.4 Basophils % 1.0 Nucleated RBC % 0 Sodium 130 L Potassium 3.2 L Chloride 98 Carbon Dioxide 20 L Anion Gap 12 BUN 58 H Creatinine 8.5 H* Creat Clearance w eGFR 6.81 POC Glucometer 96 Random Glucose 90 Calcium 7.3 L Phosphorus 7.1 H Magnesium 1.9 Blood Type Antibody Screen 07/14/18 17:02 WBC RBC Hgb Hct MCV MCH MCHC RDW Plt Count MPV Absolute Neuts (auto) Neutrophils % Lymphocytes % Monocytes % Eosinophils % Basophils % Nucleated RBC % Sodium Potassium Chloride Carbon Dioxide Anion Gap BUN Creatinine Creat Clearance w eGFR POC Glucometer 98 Random Glucose Calcium Phosphorus Magnesium Blood Type Antibody Screen ASSESSMENT AND PLAN: 47 year old male with history of CKD 5, HTN, HLD, DM 2, history of Tachyarrythmia s/p Ablation, sent to ED by [employer] Dr. Thompson for increasing chills/nausea/vomiting/decreased appetite/increasing LE edema. Vomitus non-bloody, non-bilious. No fever/chills. Reported some loose stool, now resolved. 1. Symptomatic Uremia secondary to progressive CKD, scheduled for initiation on HD Decreasing urine output, mild hypokalemia. For HD Catheter placement by Vascular Surgery with subsequent HD 07/14 Nephrology to evaluate and make further recommendations. 2. DM 2 - maintain on sliding scale. 3. HTN - Lisinopril held. Continue Amlodipine. 4. HLD - Continue Lipitor. DVT Px - Heparin SQ
[2018-07-14] MEDS: ATORVASTATIN CA 20 MG TABLET (FP) PO SCH (22:00)
[2018-07-15 05:15] LABS: HEPATITIS B CORE ANTIBODY,IGM Negative (Negative)
[2018-07-15] MEDS: INSULIN SLIDING SCALE (NOVOLOG) 1 VIAL SQ SCH ×4 (06:45→21:20)
--- NOTE | 2018-07-15 08:25 | PN ---
Progress Note (short form) - Note Progress Note: No new complaints Permacath site clean Will schedule placement of PD catheter for Thursday.
[2018-07-15 08:39] LABS: EOS % 1.5 % (0-4.5); HEMATOCRIT 26.8 % (35.4-49); HEMOGLOBIN 9.6 GM/dL (11.7-16.9); LYMPH % 16.8 % (8-40); MCH 31.9 pg (25.7-33.7); MCHC 35.9 g/dl (32.0-35.9); MEAN CELL VOLUME 88.8 fl (80-96); MEAN PLT VOLUME 7.9 fl (7.5-11.1); MONO % 13.6 % (3.8-10.2); NEUT % 67.1 % (42.8-82.8); PLATELET COUNT 356 K/MM3 (134-434); RBC 3.01 M/mm3 (4.00-5.60); RDW 12.1 % (11.9-15.9); WHITE BLOOD COUNT 7.3 K/mm3 (4.0-10.0)
[2018-07-15 09:08] LABS: ANION GAP 11 MMOL/L (8-16); BLOOD UREA NITROGEN 36 mg/dL (7-18); CALCIUM 7.5 mg/dL (8.5-10.1); CHLORIDE 103 mmol/L (98-107); CO2 23 mmol/L (21-32); CREATININE 6.7 mg/dL (0.55-1.3); GLUCOSE,RANDOM 80 mg/dL (74-106); MAGNESIUM 1.8 mg/dL (1.8-2.4); PHOSPHOROUS 4.8 mg/dL (2.5-4.9); POTASSIUM 3.3 mmol/L (3.5-5.1); SODIUM 137 mmol/L (136-145)
--- NOTE | 2018-07-15 09:19 | PN ---
Progress Note (short form) - Note Progress Note: Anesthesia postop note 47 y/o M s/p MAC for permacath placement. POD#1, vss, aaox3, no complaints. No anesthesia complications.
[2018-07-15] MEDS ORDERED: POTASSIUM CHLORIDE TABS 20 MEQ TABLET.ER (FP) PO ONE (10:10)
--- NOTE | 2018-07-15 12:17 | PN ---
Physical Exam: SUBJECTIVE: Patient seen and examined at bedside. Symptoms remain resolved, pt tolerated cath placement and HD well, ambulating well, no complaints. OBJECTIVE: Vital Signs Period Temp Pulse Resp BP Sys/Luo Pulse Ox Last 24 Hr 98.1 F-99.5 F 80-92 12-22 114-171/64-83 96-99 GENERAL: A&Ox3, NAD HEENT: NC/AT, PERRLA, EOMI, MMM NECK: Trachea midline, full range of motion, supple, right dialysis catheter in place. LUNGS: CTA b/l HEART: RRR no m/r/g ABDOMEN: +bs, soft, NT, ND EXTREMITIES: 2+ pulses, warm, well-perfused, no edema. NEUROLOGICAL: email producer, motor, sensory systems w/o focal deficit PSYCH: Normal mood, normal affect. SKIN: Warm, dry, normal turgor, no rashes or lesions noted Laboratory Results - last 24 hr 07/13/18 07/13/18 07/14/18 20:00 20:00 13:20 WBC RBC Hgb Hct MCV MCH MCHC RDW Plt Count MPV Absolute Neuts (auto) Neutrophils % Lymphocytes % Monocytes % Eosinophils % Basophils % Nucleated RBC % Sodium Potassium Chloride Carbon Dioxide Anion Gap BUN Creatinine Creat Clearance w eGFR POC Glucometer Random Glucose Calcium Phosphorus Magnesium Hep Bs Antibody Reactive Hep B Core IgM Ab Negative Hepatitis Be Antigen Negative Hep C Ab Diagnostic <0.1 07/14/18 07/14/18 07/15/18 17:02 21:59 06:44 WBC RBC Hgb Hct MCV MCH MCHC RDW Plt Count MPV Absolute Neuts (auto) Neutrophils % Lymphocytes % Monocytes % Eosinophils % Basophils % Nucleated RBC % Sodium Potassium Chloride Carbon Dioxide Anion Gap BUN Creatinine Creat Clearance w eGFR POC Glucometer 98 151 81 Random Glucose Calcium Phosphorus Magnesium Hep Bs Antibody Hep B Core IgM Ab Hepatitis Be Antigen Hep C Ab Diagnostic 07/15/18 07/15/18 07/15/18 08:00 08:00 11:28 WBC 7.3 RBC 3.01 L Hgb 9.6 L Hct 26.8 L MCV 88.8 MCH 31.9 MCHC 35.9 RDW 12.1 Plt Count 356 MPV 7.9 Absolute Neuts (auto) 4.9 Neutrophils % 67.1 Lymphocytes % 16.8 Monocytes % 13.6 H Eosinophils % 1.5 Basophils % 1.0 Nucleated RBC % 0 Sodium 137 Potassium 3.3 L Chloride 103 Carbon Dioxide 23 Anion Gap 11 BUN 36 H Creatinine 6.7 H Creat Clearance w eGFR 8.96 POC Glucometer 144 Random Glucose 80 Calcium 7.5 L Phosphorus 4.8 Magnesium 1.8 Hep Bs Antibody Hep B Core IgM Ab Hepatitis Be Antigen Hep C Ab Diagnostic Active Medications Generic Name Dose Route Start Last Admin Trade Name Freq PRN Reason Stop Dose Admin Amlodipine Besylate 10 mg 07/15/18 10:00 Norvasc - PO DAILY UNA Atorvastatin Calcium 20 mg 07/14/18 22:00 07/14/18 22:00 Lipitor - PO 20 mg HS [facility] Administration Fentanyl 25 mcg 07/14/18 12:26 Sublimaze Injection - IVPUSH [id number] PRN PAIN-PACU ORDER X 4 DOSES ONLY Heparin Sodium (Porcine) 5,000 unit 07/14/18 22:00 07/14/18 22:00 Heparin - SQ Not Given BID UNA Sodium Chloride 250 mls @ 3,000 mls/hr 07/14/18 14:00 Normal Saline - IV 07/15/18 13:59 PRN PRN Hypotension during Dialysis Sodium Chloride 1,000 mls @ 42 mls/hr 07/14/18 12:30 Normal Saline - IV ASDIR UNA Sodium Chloride 250 mls @ 3,000 mls/hr 07/14/18 21:51 Normal Saline - IV 07/15/18 21:51 PRN PRN Hypotension during Dialysis Insulin Aspart 1 vial 07/14/18 16:30 07/15/18 06:45 Novolog Vial Sliding Scale - SQ Not Given ACHS [facility] Protocol Ondansetron HCl 4 mg 07/14/18 12:26 Zofran Injection IVPUSH Q6H PRN NAUSEA AND/OR VOMITING ASSESSMENT/PLAN: 47 y/o M w/ PMHx CKD 2/2 DM, HTN, HLD, IDDM, s/p ablation for tachyarrhythmia, who was sent to the ED by PCP (Dr. Tohmpson) for three-day hx of N/V chills, and decreased appetite. #Uremia 2/2 CKD -HD via shiley yesterday, further HD as per nephrology -for PD placement tomorrow with Dr. Valdse -hepatitis panels negative, Hep B immunity noted #IDDM -BGM, ISS ACHS #HTN -will hold lisinopril -c/w amlodipine #HLD -c/w lipitor #FEN -no IVF at this time, avoid overload -continue to follow lytes -renal/diabetic diet #PPX -DVT: heparin sq -GI: not indicated #Dispo -cont to follow on med/surg Visit type - Emergency Visit Emergency Visit: No - New Patient This patient is new to me today: No - Critical Care Critical Care patient: No
--- NOTE | 2018-07-15 13:10 | PN ---
Progress Note (short form) - Note Progress Note: Renal follow up for ESRD Pt seen and examined in dialysis BP stable, pt had some lightheadeness no sob, cp, abd pain, N/V/D catheter with good flow Vital Signs Temperature 98.5 F 07/15/18 10:00 Pulse Rate 88 07/15/18 12:20 Respiratory Rate 18 07/15/18 12:20 Blood Pressure 168/86 07/15/18 12:20 O2 Sat by Pulse Oximetry (%) 95 07/15/18 09:00 Intake & Output 07/12/18 07/13/18 07/14/18 07/15/18 23:59 23:59 23:59 23:59 Intake Total 400 680 100 Output Total 1725 Balance 400 -1045 100 Weight 83.007 kg 81.692 kg 81.057 kg NAD awake and alert neck supple, no JVD RRR, No M/R CTA, no rales soft NT/ND, no rebound or guarding Trace LE edema CBC, BMP 07/15/18 08:00 07/15/18 08:00 Current Medications Amlodipine Besylate (Norvasc -) 10 mg PO DAILY [facility] Atorvastatin Calcium (Lipitor -) 20 mg PO HS [facility] Last Admin: 07/14/18 22:00 Dose: 20 mg Fentanyl (Sublimaze Injection -) 25 mcg IVPUSH [id number] PRN PRN Reason: PAIN-PACU ORDER X 4 DOSES ONLY Heparin Sodium (Porcine) (Heparin -) 5,000 unit SQ BID [facility] Last Admin: 07/14/18 22:00 Dose: Not Given Sodium Chloride (Normal Saline -) 250 mls @ 3,000 mls/hr IV PRN PRN PRN Reason: Hypotension during Dialysis Stop: 07/15/18 13:59 Sodium Chloride (Normal Saline -) 1,000 mls @ 42 mls/hr IV ASDIR UNA Sodium Chloride (Normal Saline -) 250 mls @ 3,000 mls/hr IV PRN PRN PRN Reason: Hypotension during Dialysis Stop: 07/15/18 21:51 Insulin Aspart (Novolog Vial Sliding Scale -) 1 vial SQ ACHS [facility]; Protocol Last Admin: 07/15/18 06:45 Dose: Not Given Ondansetron HCl (Zofran Injection) 4 mg IVPUSH Q6H PRN PRN Reason: NAUSEA AND/OR VOMITING 47 year old gentleman with hx of CKD stage 5 from suspected diabetic nephropathy, hypertension, hyperlipidemia, DM who presented with N/V, chills and weakness and found to have BUN/Cr of 58/8.5. #Progressive CKD now ESRD requiring dialysis #Nausea/Vomiting from uremia #Chills #DM #Hypertension #Anemia #Metabolic acidosis tolerating dialysis well today for PD catheter placement tomorrow outpatient HD unit placement pending continue amlodipine for hypertension will ideally benefit from ARB but will wait until he been on continuous dialysis transplant evaluation to be done as an outpatient start Lasix 80mg Daily Thank you Mohamud Godwin DO
[2018-07-15] MEDS: SODIUM CHLORIDE 1,000 ML IV SCH (14:11)
[2018-07-15] MEDS: amLODIPine BESYLATE 10 MG TABLET (FP) PO SCH (14:20)
[2018-07-15] MEDS: HEPARIN NA (PORCINE) 5,000 UNITS/ML 1ML VIAL SQ SCH ×2 (14:20→21:20)
[2018-07-15 15:23] LABS: HBSAG SCREEN Negative (Negative); HEP A AB, IGM Negative (Negative); HEP B CORE AB, TOT Negative (Negative)
--- NOTE | 2018-07-15 15:30 | SPA.PREOP ---
- PRE-OP NOTE Dx: ESRD Planned Procedure: Peritoneal dialysis catheter placement 07/16 Surgeon: Dr Valdes Last Vital Signs Temp Pulse Resp BP Pulse Ox 98.5 F 87 18 174/92 H 95 07/15/18 10:00 07/15/18 13:25 07/15/18 13:25 07/15/18 13:25 07/15/18 09:00 Lab Results WBC 7.3 K/mm3 (4.0-10.0) 07/15/18 08:00 RBC 3.01 M/mm3 (4.00-5.60) L 07/15/18 08:00 Hgb 9.6 GM/dL (11.7-16.9) L 07/15/18 08:00 Hct 26.8 % (35.4-49) L 07/15/18 08:00 MCV 88.8 fl (80-96) 07/15/18 08:00 MCHC 35.9 g/dl (32.0-35.9) 07/15/18 08:00 RDW 12.1 % (11.9-15.9) 07/15/18 08:00 Plt Count 356 K/MM3 (134-434) 07/15/18 08:00 Sodium 137 mmol/L (136-145) 07/15/18 08:00 Potassium 3.3 mmol/L (3.5-5.1) L 07/15/18 08:00 Chloride 103 mmol/L (98-107) 07/15/18 08:00 Carbon Dioxide 23 mmol/L (21-32) 07/15/18 08:00 Anion Gap 11 MMOL/L (8-16) 07/15/18 08:00 BUN 36 mg/dL (7-18) H 07/15/18 08:00 Creatinine 6.7 mg/dL (0.55-1.3) H 07/15/18 08:00 Random Glucose 80 mg/dL (74-106) 07/15/18 08:00 Calcium 7.5 mg/dL (8.5-10.1) L 07/15/18 08:00 Blood Type O POSITIVE 07/13/18 21:40 Antibody Screen Negative 07/13/18 16:32 INR 1.08 (0.83-1.09) 07/13/18 16:32 - IMAGING Chest X-ray: Report Reviewed (No evidence of active pulmonary disease (07/14)) EKG: Report Reviewed ((07/13): Normal sinus rhythm, nonspecific t wave abnormality, abnormal ecg, no previous ecgs available) - ASSESSMENT/PLAN 1. Make NPO after midnight except po meds 2. Hold Heparin after tonights dose 3. Medical optimization / clearance 4. Consent to be obtained by surgeon after risks, benefits and alternatives discussed with patient and or Health Care Proxy.
--- NOTE | 2018-07-15 15:57 | PN ---
Teaching Attending Note Name of Resident: Manjinder Castorena ATTENDING PHYSICIAN STATEMENT I saw and evaluated the patient. I reviewed the resident's note and discussed the case with the resident. I agree with the resident's findings and plan as documented. SUBJECTIVE: Symptoms resolved - no further nausea/vomiting. No hematemesis/ fevers/cough/sputum/dysuria/hematuria. No further loose stool. OBJECTIVE: Afebrile, Hemodynamically Stable. Last Vital Signs Temp Pulse Resp BP Pulse Ox 98.7 F 85 22 H 154/87 95 07/15/18 14:37 07/15/18 14:37 07/15/18 14:37 07/15/18 14:37 07/15/18 09:00 HEENT - Atramatic, Normocephalic Heart - S1, S2, SM Lungs - clear to auscultation Abdomen - soft, non-tender. Bowel Sounds normal. Extremities - LE edema +. No calf tenderness. Laboratory Results - last 24 hr 07/13/18 07/13/18 07/14/18 20:00 20:00 13:20 WBC RBC Hgb Hct MCV MCH MCHC RDW Plt Count MPV Absolute Neuts (auto) Neutrophils % Lymphocytes % Monocytes % Eosinophils % Basophils % Nucleated RBC % Sodium Potassium Chloride Carbon Dioxide Anion Gap BUN Creatinine Creat Clearance w eGFR POC Glucometer Random Glucose Calcium Phosphorus Magnesium Hep A IgM Ab Confirm Hepatitis A Ab Total Hep Bs Antigen Hep Bs Antibody Reactive Hep B Core Total Ab Hep B Core IgM Ab Negative Hepatitis Be Antigen Negative Hep C Ab Diagnostic <0.1 07/14/18 07/14/18 07/14/18 13:20 17:02 21:59 WBC RBC Hgb Hct MCV MCH MCHC RDW Plt Count MPV Absolute Neuts (auto) Neutrophils % Lymphocytes % Monocytes % Eosinophils % Basophils % Nucleated RBC % Sodium Potassium Chloride Carbon Dioxide Anion Gap BUN Creatinine Creat Clearance w eGFR POC Glucometer 98 151 Random Glucose Calcium Phosphorus Magnesium Hep A IgM Ab Confirm Negative Hepatitis A Ab Total Positive H Hep Bs Antigen Negative Hep Bs Antibody Reactive Hep B Core Total Ab Negative Hep B Core IgM Ab Hepatitis Be Antigen Hep C Ab Diagnostic 07/15/18 07/15/18 07/15/18 06:44 08:00 08:00 WBC 7.3 RBC 3.01 L Hgb 9.6 L Hct 26.8 L MCV 88.8 MCH 31.9 MCHC 35.9 RDW 12.1 Plt Count 356 MPV 7.9 Absolute Neuts (auto) 4.9 Neutrophils % 67.1 Lymphocytes % 16.8 Monocytes % 13.6 H Eosinophils % 1.5 Basophils % 1.0 Nucleated RBC % 0 Sodium 137 Potassium 3.3 L Chloride 103 Carbon Dioxide 23 Anion Gap 11 BUN 36 H Creatinine 6.7 H Creat Clearance w eGFR 8.96 POC Glucometer 81 Random Glucose 80 Calcium 7.5 L Phosphorus 4.8 Magnesium 1.8 Hep A IgM Ab Confirm Hepatitis A Ab Total Hep Bs Antigen Hep Bs Antibody Hep B Core Total Ab Hep B Core IgM Ab Hepatitis Be Antigen Hep C Ab Diagnostic 07/15/18 11:28 WBC RBC Hgb Hct MCV MCH MCHC RDW Plt Count MPV Absolute Neuts (auto) Neutrophils % Lymphocytes % Monocytes % Eosinophils % Basophils % Nucleated RBC % Sodium Potassium Chloride Carbon Dioxide Anion Gap BUN Creatinine Creat Clearance w eGFR POC Glucometer 144 Random Glucose Calcium Phosphorus Magnesium Hep A IgM Ab Confirm Hepatitis A Ab Total Hep Bs Antigen Hep Bs Antibody Hep B Core Total Ab Hep B Core IgM Ab Hepatitis Be Antigen Hep C Ab Diagnostic Current Medications Generic Name Dose Route Start Last Admin Trade Name Freq PRN Reason Stop Dose Admin Amlodipine Besylate 10 mg 07/15/18 10:00 07/15/18 14:20 Norvasc - PO 10 mg DAILY [facility] Administration Atorvastatin Calcium 20 mg 07/14/18 22:00 07/14/18 22:00 Lipitor - PO 20 mg HS UNA Administration Fentanyl 25 mcg 07/14/18 12:26 Sublimaze Injection - IVPUSH [id number] PRN PAIN-PACU ORDER X 4 DOSES ONLY Furosemide 80 mg 07/16/18 10:00 Lasix - PO DAILY [facility] Heparin Sodium (Porcine) 5,000 unit 07/14/18 22:00 07/15/18 14:20 Heparin - SQ 5,000 unit BID [facility] Administration Sodium Chloride 1,000 mls @ 42 mls/hr 07/14/18 12:30 07/15/18 14:11 Normal Saline - IV Not Given ASDIR [facility] Sodium Chloride 250 mls @ 3,000 mls/hr 07/14/18 21:51 Normal Saline - IV 07/15/18 21:51 PRN PRN Hypotension during Dialysis Insulin Aspart 1 vial 07/14/18 16:30 07/15/18 11:00 Novolog Vial Sliding Scale - SQ Not Given ACHS [facility] Protocol Ondansetron HCl 4 mg 07/14/18 12:26 Zofran Injection IVPUSH Q6H PRN NAUSEA AND/OR VOMITING ASSESSMENT AND PLAN: 47 year old male with history of CKD 5, HTN, HLD, DM 2, history of Tachyarrythmia s/p Ablation, sent to ED by Mash Tub Cooker Operator Dr. Thompson for increasing chills/nausea/vomiting/decreased appetite/increasing LE edema. Vomitus non-bloody, non-bilious. No fever/chills. Reported some loose stool, now resolved. 1. Symptomatic Uremia secondary to progressive CKD, s/p initiation on HD 07/14 Decreasing urine output, mild hypokalemia. s/p HD Catheter placement by Vascular Surgery For another HD session today As per Nephrology, plan for PD catheter placement 07/16. Lasix 80mg daily 2. DM 2 - maintain on sliding scale. 3. HTN - Continue Amlodipine. If BP remains on high side, can consider resuming Lisinopril. 4. HLD - Continue Lipitor. 5. SM on PE - Echo requested. DVT Px - Heparin SQ
--- NOTE | 2018-07-15 16:17 | ECHO ---
Name: IBRAHIMA YEAGER Exam:Adult Echocardiogram Study Date: 07/15/2018 02:55 PM Age: 47 yrs [facility] Weight: 174 lb BSA: 1.9 m2 MMode/2D Measurements & Calculations IVSd: 0.74 cm Ao root diam: 3.2 cm LVIDd: 5.4 cm LA dimension: 4.3 cm LVIDs: 3.5 cm LVPWd: 1.2 cm EDV(Teich): 138.5 ml LVOT diam: 2.1 cm ESV(Teich): 50.1 ml Doppler Measurements & Calculations MV E max jacques: 98.2 cm/sec Ao V2 max: 161.6 cm/sec MV A max jacques: 89.8 cm/sec Ao max P.4 mmHg MV E/A: 1.1 Ao V2 mean: 104.3 cm/sec MV dec time: 0.14 sec Ao mean P.2 mmHg Ao V2 VTI: 33.1 cm LUCY(I,D): 2.1 cm2 LUCY(V,D): 2.1 cm2 LV V1 max P.9 mmHg SV(LVOT): 70.7 ml LV V1 mean P.0 mmHg LV V1 max: 98.7 cm/sec LV V1 mean: 66.8 cm/sec LV V1 VTI: 20.7 cm TR max jacques: 287.4 cm/sec Med Peak E' Jacques: 7.0 cm/sec TR max P.0 mmHg Med E/e': 14.0 Lat Peak E' Jacques: 11.5 cm/sec Lat E/e': 8.5 Procedure A complete two-dimensional transthoracic echocardiogram was performed (2D, M-mode, Doppler and color flow Doppler). Left Ventricle The left ventricular size, thickness and function are normal. The left ventricular ejection fraction is normal. Ejection Fraction = 60-65%. The left ventricular wall motion is normal. Right Ventricle The right ventricle is normal in size and function. Atria Normal left and right atrial size and function. Mitral Valve There is trace mitral regurgitation. Tricuspid Valve No tricuspid regurgitation. There was insufficient TR detected to calculate RV systolic pressure. Aortic Valve No hemodynamically significant valvular aortic stenosis. No aortic regurgitation is present. Pulmonic Valve There is no pulmonic valvular regurgitation. Great Vessels The aortic root is normal size. Pericardium/Pleura There is no pericardial effusion. Interpretation Summary The left ventricular size, thickness and function are normal The right ventricle is normal in size and function. There is trace mitral regurgitation. MD Shaquille Ni 07/15/2018 04:17 PM
[2018-07-15] MEDS: ATORVASTATIN CA 20 MG TABLET (FP) PO SCH (21:20)
[2018-07-16] MEDS: INSULIN SLIDING SCALE (NOVOLOG) 1 VIAL SQ SCH ×2 (06:09→12:58)
[2018-07-16 06:36] LABS: BASO % 1.2 % (0-2.0); EOS % 2.4 % (0-4.5); HEMATOCRIT 24.2 % (35.4-49); HEMOGLOBIN 8.6 GM/dL (11.7-16.9); LYMPH % 21.3 % (8-40); MCH 31.1 pg (25.7-33.7); MCHC 35.4 g/dl (32.0-35.9); MEAN CELL VOLUME 87.9 fl (80-96); MEAN PLT VOLUME 7.5 fl (7.5-11.1); MONO % 16.9 % (3.8-10.2); NEUT % 58.2 % (42.8-82.8); PLATELET COUNT 299 K/MM3 (134-434); RBC 2.75 M/mm3 (4.00-5.60); RDW 12.1 % (11.9-15.9); WHITE BLOOD COUNT 7.5 K/mm3 (4.0-10.0)
[2018-07-16 07:00] LABS: ANION GAP 6 MMOL/L (8-16); BLOOD UREA NITROGEN 25 mg/dL (7-18); CHLORIDE 102 mmol/L (98-107); CO2 28 mmol/L (21-32); CREATININE 5.3 mg/dL (0.55-1.3); GLUCOSE,RANDOM 92 mg/dL (74-106); MAGNESIUM 1.4 mg/dL (1.8-2.4); PHOSPHOROUS 3.5 mg/dL (2.5-4.9); POTASSIUM 3.3 mmol/L (3.5-5.1); SODIUM 135 mmol/L (136-145)
[2018-07-16] MEDS ORDERED: MAGNESIUM OXIDE 400 MG TABLET (FP) PO ONE (07:45)
[2018-07-16] MEDS ORDERED: POTASSIUM CHLORIDE TABS 20 MEQ TABLET.ER (FP) PO ONE ×2 (07:45→08:48)
[2018-07-16] MEDS ORDERED: MAGNESIUM SULF 50% (8.12 MEQ/2 ML-1 GM VIAL) IVPB ONE (08:30)
[2018-07-16] MEDS: KCL 10 MEQ IVPB 10 MEQ/100 ML INFUS.BAG IVPB SCH ×2 (09:28→12:50)
[2018-07-16] MEDS ORDERED: FUROSEMIDE 40 MG TABLET (FP) PO SCH (10:00)
[2018-07-16] MEDS: amLODIPine BESYLATE 10 MG TABLET (FP) PO SCH (10:22)
--- NOTE | 2018-07-16 12:19 | PN ---
Progress Note (short form) - Note Progress Note: Renal follow up for ESRD Pt seen and examined at the bedside no acute complaints no sob, cp, abd pain s/p dialysis yesterday for PD cathter insertion today Vital Signs Temperature 98.8 F 07/16/18 09:33 Pulse Rate 85 07/16/18 09:33 Respiratory Rate 18 07/16/18 09:33 Blood Pressure 142/78 07/16/18 09:33 O2 Sat by Pulse Oximetry (%) 95 07/15/18 21:00 Intake & Output 07/13/18 07/14/18 07/15/18 07/16/18 23:59 23:59 23:59 23:59 Intake Total 280 102 2205 Output Total 1725 600 Balance 400 -1045 1170 Weight 83.007 kg 81.692 kg 81.057 kg NAD RRR, No M/R CTA, no rales soft NT/ND, no rebound or guarding Trace LE edema CBC, BMP 07/16/18 06:00 07/16/18 06:00 Current Medications Amlodipine Besylate (Norvasc -) 10 mg PO DAILY [facility] Last Admin: 07/15/18 14:20 Dose: 10 mg Atorvastatin Calcium (Lipitor -) 20 mg PO HS [facility] Last Admin: 07/15/18 21:20 Dose: 20 mg Fentanyl (Sublimaze Injection -) 25 mcg IVPUSH [id number] PRN PRN Reason: PAIN-PACU ORDER X 4 DOSES ONLY Furosemide (Lasix -) 80 mg PO DAILY [facility] Heparin Sodium (Porcine) (Heparin -) 5,000 unit SQ BID [facility] Last Admin: 07/15/18 21:20 Dose: Not Given Sodium Chloride (Normal Saline -) 1,000 mls @ 42 mls/hr IV ASDIR [facility] Last Admin: 07/15/18 14:11 Dose: Not Given Insulin Aspart (Novolog Vial Sliding Scale -) 1 vial SQ ACHS [facility]; Protocol Last Admin: 07/16/18 06:09 Dose: Not Given Ondansetron HCl (Zofran Injection) 4 mg IVPUSH Q6H PRN PRN Reason: NAUSEA AND/OR VOMITING 47 year old gentleman with hx of CKD stage 5 from suspected diabetic nephropathy, hypertension, hyperlipidemia, DM who presented with N/V, chills and weakness and found to have BUN/Cr of 58/8.5. #Progressive CKD now ESRD requiring dialysis #Nausea/Vomiting from uremia #Chills #DM #Hypertension #Anemia #Metabolic acidosis no acute need for COUPLER today, next planned session is Thursday as an outpatient will continue to use higher K bath on dialysis to have PD catheter insertion today discharge planning as per per primary following PD catheter Will continue MARIO with HD Dose all meds for intermittent HD Thank you Mohamud Godwin DO
[2018-07-16] MEDS: SODIUM CHLORIDE 1,000 ML IV SCH (12:24)
[2018-07-16] MEDS ORDERED: MIDAZOLAM HCL 2 MG/2 ML SINGLE DOSE VIAL ONE (13:37)
[2018-07-16] MEDS ORDERED: DEXAMETHASONE SOD PHOSPHATE 4 MG/1 ML VIAL ONE (13:38)
[2018-07-16] MEDS ORDERED: GLYCOPYRROLATE 0.2 MG/1 ML VIAL ONE (13:38)
[2018-07-16] MEDS ORDERED: KETOROLAC TROMETHAMINE 30 MG/1 ML VIAL ONE (13:38)
[2018-07-16] MEDS ORDERED: NEOSTIGMINE METHYLSULFATE 0.5 MG/ML - 10 ML MDV ONE (13:39)
[2018-07-16] MEDS ORDERED: ONDANSETRON 4 MG/2 ML VIAL IVPUSH PRN ×2 (13:51→15:31)
[2018-07-16] MEDS ORDERED: PROPOFOL 20 ML ONE ×2 (14:06→14:21)
[2018-07-16] MEDS ORDERED: ceFAZolin SODIUM 1 GM VIAL ONE (14:07)
[2018-07-16] MEDS ORDERED: ceFAZolin SODIUM 1 GM VIAL IVPB ONE (14:08)
[2018-07-16] MEDS ORDERED: BUPIVACAINE HCL/PF 0.5% (5MG/ML) 10 ML VIAL ONE (14:09)
[2018-07-16] MEDS ORDERED: BUPIVACAINE HCL/PF (5 MG/ML) 30 ML VIAL IJ ONE (14:13)
--- NOTE | 2018-07-16 14:13 | PN ---
Teaching Attending Note Name of Resident: Manjinder Castorena ATTENDING PHYSICIAN STATEMENT I saw and evaluated the patient. I reviewed the resident's note and discussed the case with the resident. I agree with the resident's findings and plan as documented. SUBJECTIVE: Feels well - Symptoms resolved - no further nausea/vomiting. No hematemesis/fevers/cough/sputum/dysuria/hematuria. No further loose stool. OBJECTIVE: Afebrile, Hemodynamically Stable. Last Vital Signs Temp Pulse Resp BP Pulse Ox 98.8 F 87 19 153/81 95 07/16/18 09:33 07/16/18 13:15 07/16/18 13:15 07/16/18 13:15 07/15/18 21:00 HEENT - Atramatic, Normocephalic Heart - S1, S2, SM Lungs - clear to auscultation Abdomen - soft, non-tender. Bowel Sounds normal. Extremities - LE edema +. No calf tenderness. Laboratory Results - last 24 hr 07/13/18 07/14/18 07/15/18 20:00 13:20 16:06 WBC RBC Hgb Hct MCV MCH MCHC RDW Plt Count MPV Absolute Neuts (auto) Neutrophils % Lymphocytes % Monocytes % Eosinophils % Basophils % Nucleated RBC % Sodium Potassium Chloride Carbon Dioxide Anion Gap BUN Creatinine Creat Clearance w eGFR POC Glucometer 137 Random Glucose Calcium Phosphorus Magnesium Hep A IgM Ab Confirm Negative Hepatitis A Ab Total Positive H Hep Bs Antigen Negative Hep Bs Antibody Reactive Hep B Core Total Ab Negative Hepatitis Be Antibody Negative 07/15/18 07/16/18 07/16/18 21:19 05:41 06:00 WBC 7.5 RBC 2.75 L Hgb 8.6 L Hct 24.2 L MCV 87.9 MCH 31.1 MCHC 35.4 RDW 12.1 Plt Count 299 MPV 7.5 Absolute Neuts (auto) 4.4 Neutrophils % 58.2 Lymphocytes % 21.3 D Monocytes % 16.9 H Eosinophils % 2.4 Basophils % 1.2 Nucleated RBC % 0 Sodium Potassium Chloride Carbon Dioxide Anion Gap BUN Creatinine Creat Clearance w eGFR POC Glucometer 142 95 Random Glucose Calcium Phosphorus Magnesium Hep A IgM Ab Confirm Hepatitis A Ab Total Hep Bs Antigen Hep Bs Antibody Hep B Core Total Ab Hepatitis Be Antibody 07/16/18 07/16/18 06:00 12:44 WBC RBC Hgb Hct MCV MCH MCHC RDW Plt Count MPV Absolute Neuts (auto) Neutrophils % Lymphocytes % Monocytes % Eosinophils % Basophils % Nucleated RBC % Sodium 135 L Potassium 3.3 L Chloride 102 Carbon Dioxide 28 Anion Gap 6 L BUN 25 H Creatinine 5.3 H Creat Clearance w eGFR 11.74 POC Glucometer 85 Random Glucose 92 Calcium 7.0 L Phosphorus 3.5 Magnesium 1.4 L Hep A IgM Ab Confirm Hepatitis A Ab Total Hep Bs Antigen Hep Bs Antibody Hep B Core Total Ab Hepatitis Be Antibody Current Medications Generic Name Dose Route Start Last Admin Trade Name Freq PRN Reason Stop Dose Admin Amlodipine Besylate 10 mg 07/15/18 10:00 07/15/18 14:20 Norvasc - PO 10 mg DAILY [facility] Administration Atorvastatin Calcium 20 mg 07/14/18 22:00 07/15/18 21:20 Lipitor - PO 20 mg HS UNA Administration Fentanyl 25 mcg 07/14/18 12:26 Sublimaze Injection - IVPUSH [id number] PRN PAIN-PACU ORDER X 4 DOSES ONLY Fentanyl 50 mcg 07/16/18 13:51 Sublimaze Injection - IVPUSH [id number] PRN PAIN-PACU ORDER X 4 DOSES ONLY Furosemide 80 mg 07/16/18 10:00 Lasix - PO DAILY [facility] Heparin Sodium (Porcine) 5,000 unit 07/14/18 22:00 07/15/18 21:20 Heparin - SQ Not Given BID [facility] Sodium Chloride 1,000 mls @ 42 mls/hr 07/14/18 12:30 07/15/18 14:11 Normal Saline - IV Not Given ASDIR [facility] Insulin Aspart 1 vial 07/14/18 16:30 07/16/18 12:58 Novolog Vial Sliding Scale - SQ Not Given ACHS [facility] Protocol Ondansetron HCl 4 mg 07/14/18 12:26 Zofran Injection IVPUSH Q6H PRN NAUSEA AND/OR VOMITING Ondansetron HCl 4 mg 07/16/18 13:51 Zofran Injection IVPUSH Q6H PRN NAUSEA AND/OR VOMITING ASSESSMENT AND PLAN: 47 year old male with history of CKD 5, HTN, HLD, DM 2, history of Tachyarrythmia s/p Ablation, sent to ED by Electrical Panel Builder Dr. Thompson for increasing chills/nausea/vomiting/decreased appetite/increasing LE edema due to worsening CKD, with progression to ESRD. Vomitus non-bloody, non-bilious. No fever/chills. Reported some loose stool, now resolved. 1. Symptomatic Uremia secondary to progressive CKD, s/p initiation on HD 07/14 Decreasing urine output, mild hypokalemia. s/p HD Catheter placement by Vascular Surgery - received HD 07/14 and 07/15. PD catheter placement scheduled 07/16. Lasix 80mg daily Patient can be discharged if medically stable after PD catheter placement - set up at Dialysis center for Dialysis on Thursday - discharge plan discussed and agreed to by with Dr. Godwin. 2. DM 2 - continue home insulin regimen. PCP follow up. 3. HTN - Continue Amlodipine. 4. HLD - Continue Lipitor. 5. SM on PE - Echo shows normal LV function with trace MR Plan for discharge once stable s/p PD catheter placement.
[2018-07-16] MEDS ORDERED: LIDOCAINE HCL/PF 2% SDV 5ML VIAL ONE (14:21)
--- NOTE | 2018-07-16 14:50 | OP ---
Operative Note - Note: Operative Date: 07/16/18 Pre-Operative Diagnosis: ESRD Operation: Laparoscopy, placement peritoneal dialysis catheter Findings: No intraabdomainal adhesions Implants: Curled Tenckhoff catheter Post-Operative Diagnosis: Same as Pre-op Surgeon: Maik Valdes Product Engineering Manager: Steffi Cohn Anesthesiologist/ROOFING APPRENTICE: Charles Pinzon Anesthesia: General
--- NOTE | 2018-07-16 15:29 | SURG ---
Surgery Thermal Cutting Tracer Machine Operator Note Thermal Cutting Tracer Machine Operator: Steffi Cohn PA-C (Suzy) Date of Service: 07/16/18 Diagnosis: ESRD Procedure: Laparoscopy, placement peritoneal dialysis catheter I was present for the entirety of the operative procedure. For further detail, please refer to operative report. Visit type - Case Type Case Type: Scheduled - Emergency Emergency Visit: No - New patient This patient is new to me today: Yes Date on this admission: 07/16/18 - Critical Care Critical Care patient: No
[2018-07-16] MEDS ORDERED: SODIUM CHLORIDE 1,000 ML IV SCH (15:31)
[2018-07-16 15:46] VITALS: BMI 29.6
[2018-07-16] MEDS ORDERED: INSULIN SLIDING SCALE (NOVOLOG) 1 VIAL SQ SCH (16:30)
[2018-07-16 18:56] VITALS: TEMP 98.5
[2018-07-16 20:19] VITALS: BP 142/80; PULSE 90
[2018-07-16] MEDS ORDERED: ATORVASTATIN CA 20 MG TABLET (FP) PO SCH (22:00)
[2018-07-16] MEDS ORDERED: HEPARIN NA (PORCINE) 5,000 UNITS/ML 1ML VIAL SQ SCH (22:00)
--- NOTE | 2018-07-17 07:19 | DS ---
Physical Exam: SUBJECTIVE: Patient seen and examined at bedside. Symptoms remain resolved, pt tolerated cath placement and HD well, ambulating well, no complaints. OBJECTIVE: Vital Signs Period Temp Pulse Resp BP Sys/Luo Pulse Ox Last 24 Hr 98.5 F-98.8 F 68-90 14-19 121-153/67-81 95-100 PHYSICAL EXAM GENERAL: A&Ox3, NAD HEENT: NC/AT, PERRLA, EOMI, MMM NECK: Trachea midline, full range of motion, supple, right dialysis catheter in place. LUNGS: CTA b/l HEART: RRR no m/r/g ABDOMEN: +bs, soft, NT, ND EXTREMITIES: 2+ pulses, warm, well-perfused, no edema. NEUROLOGICAL: adaptive physical education teacher, motor, sensory systems w/o focal deficit PSYCH: Normal mood, normal affect. SKIN: Warm, dry, normal turgor, no rashes or lesions noted LABS Laboratory Results - last 24 hr 07/16/18 07/16/18 07/16/18 06:00 12:44 17:51 WBC 7.5 RBC 2.75 L Hgb 8.6 L Hct 24.2 L MCV 87.9 MCH 31.1 MCHC 35.4 RDW 12.1 Plt Count 299 MPV 7.5 Absolute Neuts (auto) 4.4 Neutrophils % 58.2 Lymphocytes % 21.3 D Monocytes % 16.9 H Eosinophils % 2.4 Basophils % 1.2 Nucleated RBC % 0 POC Glucometer 85 112 HOSPITAL COURSE: Date of Admission:07/13/18 Patient is a 47 y/o M w/ PMHx CKD 2/2 DM, HTN, HLD, IDDM, s/p ablation for tachyarrhythmia, who was sent to the ED by outpt procurement professional logistics (Dr. Thompson) for three-day hx of N/V chills, and decreased appetite. Found to have progression of CKD with grossly elevated creatinine. Nephrology and vascular surgery were consulted. Shiley permacath was placed, patient was initiated on HD and symptoms fully resolved. He then had peritoneal dialysis catheter placed and was initiated on a standing dialysis schedule at an outpt center by nephrology. Additionally initiated on Norvasc and Lasix with home Lisinopril held until regular dialysis schedule was in place. He was discharged for outpt follow up with nephrology and outpt PD. Date of Discharge: 07/16/18 Minutes to complete discharge: 40 Discharge Summary Reason For Visit: ANEMIA,STAGE 5 CHRONIC KIDNEY DISEASE, HIGH SERUM Condition: Stable - Instructions Diet, Activity, Other Instructions: You were hospitalized because of symptoms caused by progression of your kidney disease. You had a short-term dialysis catheter placed and then had permanent peritoneal dialysis placed. You will require dialysis sessions three times per week going forward. Your kidney doctors have made all the necessary arrangements for your dialysis treatment. Please follow up with Dr. Meza within a week of discharge. You are being started on a water pill called Lasix. You should continue to take Norvasc for your blood pressure. Prescriptions have been sent to your pharmacy. You will need to resume taking Lisinopril in the future but this should be delayed until after you are on a regular dialysis schedule. Otherwise resume your home medications as directed. Dr. Meza will make the determination regarding further medication management. If you experience any chest pain, shortness of breath, swelling of your extremities, change in mental status, fever, chills, or any other new or concerning symptoms , please return to the Emergency Department. Referrals: Hazel Meza MD [Staff Physician] - Disposition: HOME - Home Medications Comprehensive Discharge Medication List: Ambulatory Orders Atorvastatin Ca [Lipitor] 20 mg DAILY 07/13/18 Ergocalciferol (Vitamin D2) [Vitamin D2] 50,000 unit PO WEEKLY 07/13/18 Insulin Detemir [Levemir Flextouch] 10 unit SQ HS 07/13/18 Amlodipine Besylate [Norvasc -] 10 mg PO DAILY #30 tablet 07/16/18 Furosemide [Lasix -] 80 mg PO DAILY #30 tablet 07/16/18 This patient is new to me today: No Emergency Visit: No Critical Care patient: No - Discharge Referral Referred to [facility] Med [facility] No
[2018-07-17] MEDS ORDERED: FUROSEMIDE 40 MG TABLET (FP) PO SCH (10:00)
[2018-07-17] MEDS ORDERED: amLODIPine BESYLATE 10 MG TABLET (FP) PO SCH (10:00)
--- NOTE | 2018-07-17 14:05 | OP ---
DATE OF OPERATION: 07/16/2018 SURGEON: Maik Valdes MD DIRECTOR PEDIATRIC: MELITA Cohn PROCEDURE: Laparoscopy with placement of peritoneal dialysis catheter. PREOPERATIVE DIAGNOSIS: End-stage renal disease. POSTOPERATIVE DIAGNOSIS: End-stage renal disease. ANESTHESIA: General. ANESTHESIOLOGIST: Riana Gage MD OPERATIVE FINDINGS: There were no intraabdominal adhesions noted. OPERATIVE PROCEDURE: Following routine patient identification with side and site verification, general anesthesia was induced. The abdomen was prepped with ChloraPrep. Timeout was performed. A Veress needle was inserted through the umbilicus into the peritoneal cavity, and pneumoperitoneum was established with carbon dioxide to 15 mmHg pressure. Marcaine was infiltrated in the skin in the right side of the abdomen, and a 5-mm Visiport was placed under laparoscopic guidance into the peritoneal cavity. The abdomen was explored, with the above-noted findings. An incision was made above and to the left of the umbilicus and an 8-mm bladeless trocar advanced until the tip was seen under the peritoneum. The trocar was then directed towards the pelvis and entered the peritoneal cavity distal to the umbilicus. A swan-neck curled double-cuff Tenckhoff catheter was then advanced with a stylet into the peritoneal cavity, and the stylet was removed, allowing the catheter to reform in the pelvis. The inner cuff was left at the level of the fascia. The port was removed and pneumoperitoneum was evacuated. Curved metal tunnel was attached to the end of the catheter, was passed in the subcutaneous plane to exit in the right abdominal wall at the previously chosen exit site. The Luer lock adapter was attached. The patient was placed in reverse Trendelenburg position. One liter of saline was run in under gravity drainage in 3-1/2 minutes, and then the bag dropped to the floor with good drainage of approximately 600 mL of fluid. The tubing was filled with heparin solution and was capped. All ports were removed. The wounds were closed with interrupted suture of 3-0 Vicryl in subcutaneous tissues, and running suture of 4-0 Biosyn on the skin. Sterile dressings were applied and the patient was taken to recovery room in stable condition. Lyndsay [id number] MTDD
--- NOTE | 2018-07-19 09:57 | SPEC ---
DATE OF OPERATION: 07/14/2018 OFFICE TECHNOLOGY INSTRUCTOR: Marv Hair CRNA OPERATION: Insertion of right-sided Perma-Cath. SURGEON: Maik Le MD ANESTHESIA: Fractional. PROCEDURE: Following intravenous sedation, the patient was placed in the Trendelenburg position. The neck and chest were prepped with Betadine solution. Xylocaine 1% was infiltrated subcutaneously in the neck and the internal jugular vein cannulated with a fine needle. A fine flexible wire was passed proximally under fluoroscopic guidance into the superior vena cava. The tract around the wire was dilated and the wire was exchanged for a larger diameter wire. Additional Xylocaine was infiltrated on the chest wall and a stab wound made beneath the clavicle. With the aid of a tunneler, the catheter was passed from chest to neck to exit next the wire. The tract around the wire was again dilated and the introducer placed into the superior vena cava. The wire and the dilator were removed. The Perma-Cath was then passed through the introducer and the tips positioned in the right atrium. The introducer was peeled away, leaving the catheter in place. Each lumen was aspirated for blood and flushed with saline and heparin solution. The neck wound was closed with a subcuticular suture of 4-0 Vicryl and the catheter was sutured to the skin at the exit site with 3-0 Nylon. Sterile dressings were applied and the patient was taken to the recovery room for a chest x-ray. MAIK LE M.D. [id number]
== END 2018-07-16 20:19 | disposition home or self-care (01) | DRG 951 ==
LOC: SUPCPDRO 11:14 → EDSEX 11:14 → JER 11:14 → JERBED 15:27 → J5S 17:13 → UNDODISIN 07-16 18:25
PROC: 05HM33Z Insertion of Infusion Device into Right Internal Jugular Vein, Percutaneous Approach (ICD-10-PCS; principal; 2018-07-14 11:00)
PROC: 5A1D70Z Performance of Urinary Filtration, Intermittent, Less than 6 Hours Per Day (ICD-10-PCS; 2018-07-15)
PROC: 0WHG43Z Insertion of Infusion Device into Peritoneal Cavity, Percutaneous Endoscopic Approach (ICD-10-PCS; 2018-07-16)
DX: I12.0 Hypertensive chronic kidney disease with stage 5 chronic kidney disease or end stage renal disease (principal); N18.6 End stage renal disease; E11.22 Type 2 diabetes mellitus with diabetic chronic kidney disease; E87.2 Acidosis; E11.21 Type 2 diabetes mellitus with diabetic nephropathy; D64.9 Anemia, unspecified; Z79.4 Long term (current) use of insulin; Z87.891 Personal history of nicotine dependence; Z84.1 Family history of disorders of kidney and ureter; E78.5 Hyperlipidemia, unspecified; E87.6 Hypokalemia
CPT/HCPCS: 36415; 71045-TC-FY; 71046-TC-FY; 76000-TC-FY; 80048; 80053; 81003; 81015; 82570; 82962; 83735; 83880; 84100; 84156; 84300; 84484; 85025; 85610; 86704; 86705; 86706; 86707; 86708; 86803; 86850; 86900; 86901; 87340; 87350; 93005; 93010; 93306-TC; 94760; 99283-25; J0885; J1644; J7030